=== PATIENT | female | born 1980 | race Caucasian/White ===

== ENCOUNTER 2023-08-29 01:41 | Observation (INO) ==
[2023-08-29] MEDS ORDERED: Heparin DRIP 25,000 UNITS BAG 25,000 UNITS/250 ML BAG IV ONE (02:30)
[2023-08-29 02:33] LABS: ABS Basophils 0.1 10^3/uL (0.0-0.1); ABS Eosinophils 0.2 10^3/uL (0.0-0.5); ABS Lymphocytes 3.8 10^3/uL (1.0-4.8); ABS Monocytes 0.8 10^3/uL (0.0-0.9); ABS Neutrophils 5.7 10^3/uL (1.5-7.6); ABS Nucleated RBC 0.01 10^3/ul; Eosinophil % 1.8 %; Hematocrit 35.7 % (35-45); Hemoglobin 12.3 g/dL (11.5-14.3); Lymphocyte % 36.1 %; Mean Corpuscular Hemoglobin 31.9 pg (27-33); Mean Corpuscular Hgb Conc 34.4 g/dL (31-36); Mean Corpuscular Volume 92.7 fL (80-97); Mean Platelet Volume 7.4 fL (7.5-11.2); Platelet Count 343 10^3/uL (150-450); Red Blood Count 3.85 10^6/uL (3.63-4.92); Red Cell Distribution Width 16.3 % (12-17); White Blood Count 10.6 10^3/uL (3.8-11.8)
[2023-08-29] MEDS: Heparin DRIP 25,000 UNITS BAG 25,000 UNITS/250 ML BAG IV SCH (02:35)
[2023-08-29 03:11] LABS: Calcium 8.2 mg/dL (8.6-10.3); Creatinine, Serum 0.63 mg/dL (0.51-0.95); Potassium 3.4 mmol/L (3.5-5.0); eGFR CKD-EPI 113.5 (>60)
[2023-08-29] MEDS: Nitroglycerin 0.3 mg TAB SL PRN (03:39)
[2023-08-29 03:48] LABS: High Sensitivity Troponin 1 Hr 958 pg/mL (<15)
[2023-08-29] MEDS: Potassium Chlor 20 meq TAB.ER PO ONE (03:49)
[2023-08-29] MEDS: Iohexol 350 (CONTRAST) 500 ML MDV IV ONE (04:09)
[2023-08-29] MEDS: Acetaminophen IV 1 GM/100ML 1,000 MG/100 ML BAG IV PRN (04:57)
[2023-08-29 05:20] LABS: ABS Eosinophils 0.2 10^3/uL (0.0-0.5); ABS Lymphocytes 4.2 10^3/uL (1.0-4.8); ABS Monocytes 0.8 10^3/uL (0.0-0.9); ABS Neutrophils 5.8 10^3/uL (1.5-7.6); ABS Nucleated RBC 0.01 10^3/ul; Eosinophil % 2.2 %; Hematocrit 35.7 % (35-45); Hemoglobin 12.1 g/dL (11.5-14.3); Lymphocyte % 37.9 %; Mean Corpuscular Hemoglobin 31.8 pg (27-33); Mean Corpuscular Volume 93.5 fL (80-97); Mean Platelet Volume 7.9 fL (7.5-11.2); Nucleated Red Blood Cells % 0.1 %/100WBC (0.0-0.8); Platelet Count 347 10^3/uL (150-450); Red Blood Count 3.82 10^6/uL (3.63-4.92); Red Cell Distribution Width 16.4 % (12-17); White Blood Count 11.1 10^3/uL (3.8-11.8)
[2023-08-29 05:56] LABS: Calcium 7.5 mg/dL (8.6-10.3); Creatinine, Serum 0.57 mg/dL (0.51-0.95); Magnesium 1.8 mg/dL (1.9-2.7); Potassium 3.7 mmol/L (3.5-5.0); eGFR CKD-EPI 116.3 (>60)
[2023-08-29] MEDS: Sulfur Hexaflouride MICROSPHR 25 MG VIAL IV ONE (08:29)
[2023-08-29 08:46] LABS: Albumin 3.4 g/dL (3.2-5.2); Albumin/Globulin Ratio 1.8 (1-3); C Reactive Protein 5.44 mg/L (<8.01); Globulin 1.9 g/dL (2-4); HDL Cholesterol 51.9 mg/dL; Total Bilirubin 0.6 mg/dL (0.2-1.0); Total Protein 5.3 g/dL (6.4-8.9)
[2023-08-29 08:55] LABS: Activated Partial Thrombo Time 33.3 seconds (26.0-38.0)
[2023-08-29] MEDS: Heparin 5000 UNITS/ML 1 mL VIAL IV SCH (09:10)
[2023-08-29 10:18] LABS: High Sensitivity Troponin 1 Hr 403 pg/mL (<15)
[2023-08-29] MEDS ORDERED: VERAPAMIL 2.5 MG/ML 2 ML VIAL ** 5 mg/2 ml ONE (13:01)
[2023-08-29] MEDS ORDERED: Heparin 2 UNITS/ML 1000 mls 1,000 ML IV ONE (13:02)
[2023-08-29] MEDS ORDERED: Iohexol 350 (CONTRAST) 200 ML MDV IV ONE (13:02)
[2023-08-29] MEDS ORDERED: nitroGLYCERIN DRIP 25,000 MCG/250 ML BTL ONE (13:02)
[2023-08-29] MEDS ORDERED: Lidocaine 1% MPF 5 ML VIAL ONE (13:02)
[2023-08-29] MEDS ORDERED: Heparin 1,000 UNIT/ML 10 ml (10,000 UNITS) CATHLAB/DIALYSIS ONE (13:02)
[2023-08-29] MEDS ORDERED: Midazolam 5 mg/5 ml VIAL 1 mg/ml 5 ml VIAL (5 mg) ONE (13:07)
[2023-08-29] MEDS ORDERED: fentaNYL 100 mcg/2 ml 50 MCG/ML VIAL ONE (13:08)
[2023-08-29] MEDS ORDERED: Atropine 0.1 MG/ML 10 ml SYR (1 mg) ONE (13:24)
[2023-08-29] MEDS: NS 0.9% 1000 ml BAG 1,000 ML IV SCH (14:15)
[2023-08-29] MEDS: Enoxaparin 40 MG/0.4 ML SYR SUBCUT SCH (18:15)
[2023-08-29] MEDS ORDERED: Enoxaparin 40 MG/0.4 ML SYR SUBCUT SCH (18:30)
[2023-08-29] MEDS ORDERED: Albuterol HFA INHALER 8 gm MDI INH PRN (19:15)
[2023-08-30 06:42] LABS: Albumin 3.6 g/dL (3.2-5.2); Albumin/Globulin Ratio 1.9 (1-3); Calcium 8.3 mg/dL (8.6-10.3); Creatinine, Serum 0.63 mg/dL (0.51-0.95); Globulin 1.9 g/dL (2-4); Magnesium 1.9 mg/dL (1.9-2.7); Potassium 3.9 mmol/L (3.5-5.0); Total Bilirubin 0.3 mg/dL (0.2-1.0); Total Protein 5.5 g/dL (6.4-8.9); eGFR CKD-EPI 113.5 (>60)
[2023-08-30] MEDS: Potassium Chlor 10 meq TAB PO ONE (07:30)
[2023-08-30] MEDS: Magnesium Sulfate IV 1GM/100ML 1 GM/100 ML BAG IV ONE (07:32)
[2023-08-30 09:53] VITALS: BP 122/84
== END 2023-08-30 14:32 | disposition home or self-care (01) ==
LOC: ED 01:41 → EDHOLD 01:41 → SUATTDRO 02:32 → MEDTELE 09:27
PROVIDERS: ADMIT Student in an Organized Health Care Education/Training Program; ATTEND Student in an Organized Health Care Education/Training Program